=== PATIENT | female | born 1945 | race Two or more races ===

== ENCOUNTER 2018-12-02 08:11 | Emergency (ER) | payer OTHER ==
[~2018-12-02] VITALS: Ht 160 cm; Wt 66.2 kg
[2018-12-02 08:29] VITALS: Ht 160 cm; Wt 66.2 kg
[2018-12-02 09:13] VITALS: BP 154/92
== END 2018-12-02 09:15 | disposition home or self-care (01) ==
LOC: ED 08:11
DX: S09.8XXA Other specified injuries of head, initial encounter (principal); I10 Essential (primary) hypertension; E11.40 Type 2 diabetes mellitus with diabetic neuropathy, unspecified; E78.5 Hyperlipidemia, unspecified; M85.80 Other specified disorders of bone density and structure, unspecified site; X58.XXXA Exposure to other specified factors, initial encounter; Y93.42 Activity, yoga; Y92.89 Other specified places as the place of occurrence of the external cause; Y99.8 Other external cause status